=== PATIENT | female | born 1955 | race African-American/Black ===

== ENCOUNTER 2022-10-17 12:55 | Emergency (ER) | payer OTHER ==
[2022-10-17 13:04] VITALS: BP 121/73; PULSE 103; RESP 18; TEMP 98.6; BMI 38.4
[2022-10-17] MEDS ORDERED: KETOROLAC TROMETHAMINE 30 MG/1 ML VIAL IM ONE (13:46)
[2022-10-17] MEDS ORDERED: KETOROLAC TROMETHAMINE 30 MG/1 ML VIAL ONE (15:10)
== END 2022-10-17 16:19 | disposition home or self-care (01) ==
LOC: JER 12:55
PROC: 3E0233Z Introduction of Anti-inflammatory into Muscle, Percutaneous Approach (ICD-10-PCS; principal; 2022-10-17)
DX: M25.521 Pain in right elbow (principal); S83.92XA Sprain of unspecified site of left knee, initial encounter; S83.91XA Sprain of unspecified site of right knee, initial encounter; R22.42 Localized swelling, mass and lump, left lower limb; W01.0XXA Fall on same level from slipping, tripping and stumbling without subsequent striking against object, initial encounter
CPT/HCPCS: 73070-TC-RT-FY; 73564-TC-LT-FY; 73564-TC-RT-FY; 99284-25